=== PATIENT | male | born 1980 | race African-American/Black ===

== ENCOUNTER 2020-04-02 17:40 | Emergency (ER) | payer OTHER ==
[~2020-04-02] VITALS: Ht 185.4 cm; Wt 127.3 kg
[~2020-04-02 17:40] MED LIST: LORTAB 5/500 501 TAB PO; NO HOME MEDICATIONS
[2020-04-02 17:47] VITALS: TEMP 97.9
[2020-04-02 18:05] LABS: BASO # 0.1 (0.0-0.2); BASO % 0.9 % (0.0-2.0); EOS # 0.5 (0.0-0.7); EOS % 4.4 % (0-4.0); GRAN # 5.3 (1.4-6.5); GRAN % 52.3 % (42.2-75.2); HEMATOCRIT 46.7 % (42.0-52.0); HEMOGLOBIN 16.1 g/dl (13.5-18.0); LYMPH # 3.5 (1.2-3.4); LYMPH % 34.6 % (20.0-51.0); MEAN CELL VOLUME 88 fl (80.0-100.0); MEAN CORPUSCULAR HEMOGLOBIN 30 pg (27.0-31.0); MEAN CORPUSCULAR HGB CONC 35 g/dl (33.0-37.0); MEAN PLATELET VOLUME 8.9 fl (7.4-10.4); MONO # 0.8 (0.1-0.6); MONO % 7.5 % (1.7-9.3); PLATELET COUNT 388 K/mm3 (130-400); RED BLOOD COUNT 5.34 M/mm3 (4.20-5.60); REDCELL DISTRIBUTION WIDTH-CV 13.2 % (11.5-14.5)
[2020-04-02 18:09] LABS: PROTHROMBIN TIME 10.7 SECONDS (9.7-12.8)
[2020-04-02 18:14] LABS: ALANINE AMINOTRANSFERASE 25 U/L (4-49); ALKALINE PHOSPHATASE 138 U/L (50-136); ANION GAP 12 mmol/L (7-16); AST,SGOT 35 U/L (15-37); BILIRUBIN,TOTAL 0.7 mg/dL (0.0-1.0); BLOOD UREA NITROGEN 14 mg/dL (9-20); CARBON DIOXIDE 26 mmol/L (22-30); CHLORIDE 100 mmol/L (98-107); CREATININE, serum 1.02 (0.66-1.25); GLUCOSE 95 mg/dL (74-106); LIPASE 104 U/L (23-300); POTASSIUM 3.2 mmol/L (3.4-5.0); SODIUM 138 mmol/L (137-145); TOTAL PROTEIN 9.4 gm/dL (6.4-8.2)
[2020-04-02] MEDS ORDERED: PRINZIDE 12.5 M1 TA1 PO (18:23)
[2020-04-02] MEDS ORDERED: TOPROL XL100 MG PO (18:24)
[2020-04-02] MEDS ORDERED: GLUCOPHAGE500 MG/TAB PO (18:25)
[2020-04-02] MEDS ORDERED: GLUCOTROL 5M5 MG/TAB PO (18:26)
[2020-04-02] MEDS ORDERED: NORVASC 5MG5 MG/TAB PO (18:26)
[2020-04-02 18:28] LABS: TROPONIN-I < 0.012 ng/mL (0.000-0.035)
[2020-04-02 22:07] VITALS: BP 185/114; PULSE 64
== END 2020-04-02 22:15 | disposition home or self-care (01) ==
LOC: COL.ER 17:40
PROVIDERS: Emergency Medicine
DX: R07.9 Chest pain, unspecified (principal); E87.6 Hypokalemia; I10 Essential (primary) hypertension; E11.9 Type 2 diabetes mellitus without complications; F17.290 Nicotine dependence, other tobacco product, uncomplicated; Z79.84 Long term (current) use of oral hypoglycemic drugs
CPT/HCPCS: J7030

== ENCOUNTER → 2023-09-03 | Outpatient (CLI) | payer OTHER ==
[~2023-09-03] MED LIST changes: +GLUCOPHAGE500 MG/TAB PO; +GLUCOTROL 5M5 MG/TAB PO; +Iohexol 300 - 100 ML VIAL IV ONE; +NORVASC 5MG5 MG/TAB PO; +NS 100 ML IV SCH; +PRINZIDE 12.5 M1 TA1 PO; +TOPROL XL100 MG PO
== END | disposition still patient (30) ==
LOC: COL.RAD 07:20
DX: R91.8 Other nonspecific abnormal finding of lung field (principal); I10 Essential (primary) hypertension; E66.01 Morbid (severe) obesity due to excess calories
CPT/HCPCS: Q9967

== ENCOUNTER 2024-02-11 16:12 | Emergency (ER) | payer OTHER ==
[~2024-02-11] VITALS: Ht 182.9 cm; Wt 127.3 kg
[~2024-02-11 16:12] MED LIST changes: -Iohexol 300 - 100 ML VIAL IV ONE; -NS 100 ML IV SCH
[2024-02-11 16:18] VITALS: TEMP 97.9
[2024-02-11 17:10] VITALS: BP 188/127; PULSE 82
== END 2024-02-11 17:11 | disposition home or self-care (01) ==
LOC: COL.ER 16:12
DX: S81.012A Laceration without foreign body, left knee, initial encounter (principal); F17.290 Nicotine dependence, other tobacco product, uncomplicated; W25.XXXA Contact with sharp glass, initial encounter; Y93.E9 Activity, other interior property and clothing maintenance; Y92.039 Unspecified place in apartment as the place of occurrence of the external cause; Y99.0 Civilian activity done for income or pay